=== PATIENT | female | born 1975 | race Two or more races ===

== ENCOUNTER 2019-11-12 21:16 | Emergency (ER) | payer OTHER ==
--- NOTE | 2019-11-12 21:33 | PDOC ---
Rapid Medical Evaluation Time Seen by Provider: 11/12/19 21:31 Medical Evaluation: Allergies Allergy/AdvReac Type Severity Reaction Status Date / Time No Known Allergies Allergy Verified 09/17/15 17:12 11/12/19 21:31 Pt presents to the ER for worsening R foot pain for 2 days. Exam: TTP of the medial aspect of the R heel Orders: x-rays Pt to proceed to the ER for further evaluation Discharge Disposition - Diagnosis Foot pain Qualifiers: Laterality: right Qualified Code(s): M79.671 - Pain in right foot - Referrals - Patient Instructions - Post Discharge Activity
[2019-11-12 21:34] VITALS: BP 117/72; PULSE 82; TEMP 98.3; BMI 28.3
--- NOTE | 2019-11-12 22:34 | PDOC ---
History of Present Illness - General Chief Complaint: Pain, Acute Stated Complaint: RT FOOT PAIN Time Seen by Provider: 11/12/19 21:31 - History of Present Illness Initial Comments: 11/12/19 22:33 44-year-old female without comorbidities presents for evaluation of 2 weeks of atraumatic right foot pain no systemic symptoms. History of plantar fasciitis with a surgical fix on the left foot Past History - Medical History Allergies/Adverse Reactions: Allergies Allergy/AdvReac Type Severity Reaction Status Date / Time No Known Allergies Allergy Verified 09/17/15 17:12 Home Medications: Ambulatory Orders Methocarbamol [Robaxin -] 500 mg PO TID #30 tablet 09/17/15 Methylprednisolone [Medrol Dose Donald] 4 mg PO ASDIR #21 tablet 09/17/15 Oxycodone HCl/Acetaminophen [Percocet 5-325 mg Tablet] 1 tab PO Q8H PRN #15 tablet MDD 4 09/17/15 Asthma: Yes COPD: No - Reproductive History Is Patient Now?: No - Psycho-Social/Smoking History Smoking Status: No Smoking History: Never smoked Number of Cigarettes Smoked Daily: 0 - Substance Abuse Hx (Audit-C & DAST Scrn) How often the patient has a drink containing alcohol: Never Score: In Men: 4 or > Positive; In Women: 3 or > Positive: 0 Screen Result (Pos requires Nsg. Audit-10AR): Negative In the last yr the pt used illegal drug/Rx for NonMed reason: No Score: Yes response is considered Positive: 0 Screen Result (Positive result requires Nsg. DAST-10): Negative Review of Systems - Review of Systems Constitutional: No: Fever *Physical Exam - Vital Signs Last Vital Signs Temp Pulse Resp BP Pulse Ox 98.3 F 82 19 117/72 99 11/12/19 21:31 11/12/19 21:31 11/12/19 21:31 11/12/19 21:31 11/12/19 21:31 - Physical Exam 11/12/19 22:33 Right foot skin color and temperature normal full range of motion of the ankle tenderness over the medial tubercle of the calcaneus no other areas of tenderness neurovascular intact. Medical Decision Making - Medical Decision Making 11/12/19 22:33 X-rays of the right foot show a large heel spur. Plantar fasciitis patient will take p.o. 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 She is in need of a work note That is the reason for her visit to the emergency room [facility]. Discharge - Discharge Information Problems reviewed: Yes Clinical Impression/Diagnosis: Plantar fascia syndrome Foot pain Qualifiers: Laterality: right Qualified Code(s): M79.671 - Pain in right foot Condition: Stable Disposition: HOME - Admission No - Follow up/Referral Referrals: Juan Gill MD [Primary Care Provider] - - Patient Discharge Instructions Additional Instructions: Follow-up with your orthopedic surgeon in 1 to 2 days without fail for further evaluation and treatment options. Tylenol Motrin as directed for pain. Return to the emergency room for worsening symptoms. - Post Discharge Activity Work/Back to School Note: Back to Work
== END 2019-11-12 22:50 | disposition home or self-care (01) ==
LOC: JERFT 21:16
DX: M72.2 Plantar fascial fibromatosis (principal); M79.671 Pain in right foot
CPT/HCPCS: 73630-TC-RT-FY; 99283-25

== ENCOUNTER 2020-02-26 20:28 | Emergency (ER) | payer OTHER ==
[2020-02-26 20:42] VITALS: BP 140/81; PULSE 94; TEMP 97.8; BMI 27.8
== END 2020-02-26 21:45 | disposition home or self-care (01) ==
LOC: JERFT 20:28
DX: M79.671 Pain in right foot (principal)
CPT/HCPCS: 73630-TC-RT-FY; 99283-25

== ENCOUNTER 2021-03-30 08:36 | Emergency (ER) | payer OTHER ==
[2021-03-30 08:40] VITALS: BP 136/88; PULSE 102; TEMP 98.2; BMI 27.4
[2021-03-31 10:07] LABS: SARS-CoV-2 NAA Detected (Not Detected)
== END 2021-03-30 11:26 | disposition home or self-care (01) ==
LOC: JER 08:36
DX: U07.1 COVID-19 (principal)
CPT/HCPCS: 99283-25; C9803; U0003; U0005

== ENCOUNTER 2021-04-17 08:45 | Emergency (ER) | payer OTHER ==
[2021-04-17 08:57] VITALS: BP 130/73; PULSE 87; TEMP 98.4; BMI 28.3
[2021-04-17] MEDS ORDERED: KETOROLAC TROMETHAMINE 30 MG/1 ML VIAL IM ONE (09:29)
[2021-04-17] MEDS ORDERED: KETOROLAC TROMETHAMINE 30 MG/1 ML VIAL ONE (09:37)
== END 2021-04-17 12:08 | disposition home or self-care (01) ==
LOC: JERFT 08:45
PROC: 3E0233Z Introduction of Anti-inflammatory into Muscle, Percutaneous Approach (ICD-10-PCS; principal; 2021-04-17)
DX: S46.911A Strain of unspecified muscle, fascia and tendon at shoulder and upper arm level, right arm, initial encounter (principal); S46.011A Strain of muscle(s) and tendon(s) of the rotator cuff of right shoulder, initial encounter
CPT/HCPCS: 73030-TC-RT-FY; 99284-25

== ENCOUNTER 2022-02-16 09:11 | Emergency (ER) | payer OTHER ==
[2022-02-16 09:35] VITALS: BP 154/94; RESP 16; TEMP 99; BMI 25.7
[2022-02-16] MEDS ORDERED: KETOROLAC TROMETHAMINE 30 MG/1 ML VIAL IM ONE (09:56)
[2022-02-16] MEDS ORDERED: KETOROLAC TROMETHAMINE 30 MG/1 ML VIAL ONE (10:51)
[2022-02-16 11:01] LABS: CHLORIDE 104 mmol/L (98-107); SODIUM 138 mmol/L (136-145)
[2022-02-16 11:02] LABS: ANION GAP 6 MMOL/L (8-16); CALCIUM 8.2 mg/dL (8.5-10.1); CO2 28 mmol/L (21-32)
[2022-02-16 11:03] LABS: BLOOD UREA NITROGEN 8.2 mg/dL (7-18); GLUCOSE,RANDOM 87 mg/dL (74-106)
[2022-02-16 11:06] LABS: CREATININE 0.9 mg/dL (0.55-1.3)
[2022-02-16 11:45] LABS: BASO % 0.7 % (0-2.0); EOS % 2.5 % (0-4.5); HEMATOCRIT 29.8 % (32.4-45.2); HEMOGLOBIN 8.9 GM/dL (10.7-15.3); LYMPH % 7.4 % (8-40); MCHC 29.8 g/dl (32.0-36.0); MEAN CELL VOLUME 56.6 fl (80-96); MEAN PLT VOLUME 9.2 fl (7.5-11.1); MONO % 9.5 % (3.8-10.2); NEUT % 79.9 % (42.8-82.8); PLATELET COUNT 152 10^3/uL (134-434); RBC 5.26 M/mm3 (3.60-5.2); RDW 20.9 % (11.6-15.6); WHITE BLOOD COUNT 9.3 K/mm3 (4.0-10.0)
[2022-02-16 11:47] LABS: MCH 16.9 pg (25.7-33.7)
[2022-02-16 12:17] VITALS: PULSE 94
[2022-02-16 13:46] LABS: ANISOCYTOSIS 3+; MACROCYTOSIS 0; OVALOCYTE 1+; TARGET CELLS 1+
== END 2022-02-16 13:15 | disposition home or self-care (01) ==
LOC: JER 09:11
PROC: 3E0233Z Introduction of Anti-inflammatory into Muscle, Percutaneous Approach (ICD-10-PCS; principal; 2022-02-16)
DX: J09.X2 Influenza due to identified novel influenza A virus with other respiratory manifestations (principal); R05.1 Acute cough; R07.9 Chest pain, unspecified
CPT/HCPCS: 0241U-QW; 36415; 80048; 84484; 85025; 93005; 93010; 99284-25

== ENCOUNTER 2022-08-29 02:26 | Emergency (ER) | payer OTHER ==
[2022-08-29 02:45] VITALS: BP 145/88; PULSE 88; TEMP 98; BMI 30.2
[2022-08-29] MEDS ORDERED: IBUPROFEN 600 MG TABLET (FP) PO ONE ×2 (03:25→03:27)
[2022-08-29 03:45] VITALS: RESP 18
== END 2022-08-29 03:45 | disposition home or self-care (01) ==
LOC: JER 02:26
DX: S20.219A Contusion of unspecified front wall of thorax, initial encounter (principal); Y04.8XXA Assault by other bodily force, initial encounter
CPT/HCPCS: 99283-25

== ENCOUNTER 2023-03-05 23:30 | Inpatient (IN) | payer OTHER ==
[2023-03-05] MEDS ORDERED: IBUPROFEN 100 MG/5 ML UNIT DOSE CUPS PO ONE (23:56)
[2023-03-06] MEDS ORDERED: IBUPROFEN 100 MG/5 ML UNIT DOSE CUPS ONE (01:20)
[2023-03-06] MEDS ORDERED: CLINDAMYCIN 600MG PREMIX IVPB 600 MG/50 ML BAG IVPB ONE ×2 (02:02→02:41)
[2023-03-06 02:22] LABS: EOS % 0.7 % (0-4.5); MCHC 28.2 g/dl (32.0-36.0); MEAN CELL VOLUME 51.6 fl (80-96); MEAN PLT VOLUME 9.5 fl (7.5-11.1); MONO % 10.8 % (3.8-10.2); NEUT % 54.5 % (42.8-82.8); PLATELET COUNT 43 10^3/uL (134-434); RBC 4.45 M/mm3 (3.60-5.2); RDW 21.1 % (11.6-15.6); WHITE BLOOD COUNT 10.8 K/mm3 (4.0-10.0)
[2023-03-06 02:25] LABS: MCH 14.5 pg (25.7-33.7)
[2023-03-06 02:30] LABS: HEMOGLOBIN 6.5 GM/dL (10.7-15.3)
[2023-03-06 02:56] LABS: CALCIUM 8.1 mg/dL (8.5-10.1)
[2023-03-06 02:57] LABS: ALBUMIN 3.2 g/dl (3.4-5.0); BLOOD UREA NITROGEN 16.5 mg/dL (7-18)
[2023-03-06 03:00] LABS: CREATININE 1.1 mg/dL (0.55-1.3)
[2023-03-06 03:01] LABS: TOT PROT 7.2 g/dl (6.4-8.2)
[2023-03-06 03:02] LABS: BILIRUBIN,TOTAL 0.3 mg/dL (0.2-1); ERYTHROCYTE SEDIMENTATION RATE 28 mm/hr (0-20)
[2023-03-06 04:14] LABS: MCHC 28.2 g/dl (32.0-36.0); MEAN CELL VOLUME 51.8 fl (80-96); MEAN PLT VOLUME 9.8 fl (7.5-11.1); PLATELET COUNT 55 10^3/uL (134-434); RBC 4.44 M/mm3 (3.60-5.2); RDW 21.4 % (11.6-15.6); WHITE BLOOD COUNT 10.3 K/mm3 (4.0-10.0)
[2023-03-06 04:17] LABS: MCH 14.6 pg (25.7-33.7)
[2023-03-06 04:18] LABS: HEMOGLOBIN 6.5 GM/dL (10.7-15.3)
[2023-03-06 04:54] LABS: ANISOCYTOSIS 1+; MACROCYTOSIS 0; PLATELET ESTIMATE DECREASED; TEAR DROP CELLS 1+
[2023-03-06 08:19] VITALS: BMI 27.9
[2023-03-06] MEDS ORDERED: LACTATED RINGERS SOLUTION 1000 ML INFUS.BAG IV ONE (10:15)
[2023-03-06] MEDS: FERROUS SO4 325 MG TABLET (FP) PO SCH (10:55)
[2023-03-06] MEDS ORDERED: IRON SUCROSE INJECTION 200 MG in SODIUM CHLORIDE 90 ML IVPB ONE (12:30)
[2023-03-06] MEDS: ACETAMINOPHEN 1000 MG/100 ML BAG IVPB PRN (15:51)
[2023-03-07] MEDS ORDERED: ENOXAPARIN NA (PORCINE) 40 MG/0.4 ML DISP.SYRIN SQ SCH (10:00)
[2023-03-07 10:55] LABS: HEMATOCRIT 29.8 % (32.4-45.2); HEMOGLOBIN 8.8 GM/dL (10.7-15.3); MCHC 29.3 g/dl (32.0-36.0); MEAN PLT VOLUME 9.7 fl (7.5-11.1); PLATELET COUNT 41 10^3/uL (134-434); RBC 5.23 M/mm3 (3.60-5.2); WHITE BLOOD COUNT 8.7 K/mm3 (4.0-10.0)
[2023-03-07] MEDS: FERROUS SO4 325 MG TABLET (FP) PO SCH (10:55)
[2023-03-07 10:58] LABS: MCH 16.7 pg (25.7-33.7)
[2023-03-07 11:12] LABS: POTASSIUM 3.7 mmol/L (3.5-5.1)
[2023-03-07 11:18] LABS: BLOOD UREA NITROGEN 4.5 mg/dL (7-18)
[2023-03-07 11:22] LABS: CREATININE 0.9 mg/dL (0.55-1.3); PHOSPHOROUS 2.9 mg/dL (2.5-4.9)
[2023-03-07 14:20] LABS: INR 1.19 (0.83-1.09); PROTHROMBIN TIME (PATIENT) 13.8 SEC (9.7-13.0)
[2023-03-07 14:23] LABS: ACTIVATED PTT 34.2 SECONDS (25.2-36.5)
[2023-03-07] MEDS: ACETAMINOPHEN 1000 MG/100 ML BAG IVPB PRN (17:06)
[2023-03-07] MEDS: AMPICILLIN NA/SULBACTAM NA 1.5 GM in SODIUM CHLORIDE 100 ML IVPB SCH (21:14)
[2023-03-08] MEDS: AMPICILLIN NA/SULBACTAM NA 1.5 GM in SODIUM CHLORIDE 100 ML IVPB SCH ×4 (02:23→20:48)
[2023-03-08 09:48] LABS: POTASSIUM 3.8 mmol/L (3.5-5.1)
[2023-03-08 09:52] LABS: ALBUMIN 3.1 g/dl (3.4-5.0); BLOOD UREA NITROGEN 7.5 mg/dL (7-18); CALCIUM 8.3 mg/dL (8.5-10.1); MAGNESIUM 1.9 mg/dL (1.8-2.4)
[2023-03-08 09:54] LABS: CREATININE 0.9 mg/dL (0.55-1.3)
[2023-03-08 09:55] LABS: PHOSPHOROUS 3.2 mg/dL (2.5-4.9)
[2023-03-08 09:56] LABS: BILIRUBIN,TOTAL 0.5 mg/dL (0.2-1); TOT PROT 7.2 g/dl (6.4-8.2)
[2023-03-08 10:16] LABS: BASO % 0.8 % (0-2.0); EOS % 1.2 % (0-4.5); HEMATOCRIT 31.1 % (32.4-45.2); HEMOGLOBIN 9.1 GM/dL (10.7-15.3); MCHC 29.1 g/dl (32.0-36.0); MEAN CELL VOLUME 57.4 fl (80-96); MEAN PLT VOLUME 9.7 fl (7.5-11.1); MONO % 5.3 % (3.8-10.2); NEUT % 72.7 % (42.8-82.8); PLATELET COUNT 41 10^3/uL (134-434); RBC 5.42 M/mm3 (3.60-5.2); WHITE BLOOD COUNT 9.9 K/mm3 (4.0-10.0)
[2023-03-08 10:19] LABS: MCH 16.7 pg (25.7-33.7)
[2023-03-08] MEDS: FERROUS SO4 325 MG TABLET (FP) PO SCH (10:31)
[2023-03-08] MEDS: ASCORBIC ACID 500 MG TABLET (FP) PO SCH (10:31)
[2023-03-08] MEDS: PANTOPRAZOLE 40 MG TABLET PO SCH (10:31)
[2023-03-08 19:19] LABS: HIV INTERPRETATION NEGATIVE (NEGATIVE)
[2023-03-09] MEDS: AMPICILLIN NA/SULBACTAM NA 1.5 GM in SODIUM CHLORIDE 100 ML IVPB SCH ×4 (02:31→21:06)
[2023-03-09 07:06] LABS: IGA IMMUNOGLOBULIN 714 mg/dL (87-352)
[2023-03-09] MEDS: PANTOPRAZOLE 40 MG TABLET PO SCH (10:15)
[2023-03-09] MEDS: ASCORBIC ACID 500 MG TABLET (FP) PO SCH (10:15)
[2023-03-09] MEDS: FERROUS SO4 325 MG TABLET (FP) PO SCH (10:15)
[2023-03-09 11:37] LABS: BASO % 0.8 % (0-2.0); EOS % 1.5 % (0-4.5); HEMATOCRIT 32.1 % (32.4-45.2); HEMOGLOBIN 9.4 GM/dL (10.7-15.3); LYMPH % 27.3 % (8-40); MCH 16.9 pg (25.7-33.7); MCHC 29.4 g/dl (32.0-36.0); MEAN CELL VOLUME 57.7 fl (80-96); MEAN PLT VOLUME 8.9 fl (7.5-11.1); MONO % 9.8 % (3.8-10.2); NEUT % 60.6 % (42.8-82.8); RBC 5.56 M/mm3 (3.60-5.2); RDW 26.3 % (11.6-15.6); WHITE BLOOD COUNT 9.2 K/mm3 (4.0-10.0)
[2023-03-09 12:04] LABS: ANISOCYTOSIS 3+; MACROCYTOSIS 0; OVALOCYTE 1+; TARGET CELLS 1+; TEAR DROP CELLS 1+
[2023-03-09 12:26] LABS: PLATELET COUNT 35 10^3/uL (134-434)
[2023-03-09 13:31] LABS: HIV INTERPRETATION NEGATIVE (NEGATIVE)
[2023-03-09] MEDS: ACETAMINOPHEN 1000 MG/100 ML BAG IVPB PRN (17:26)
[2023-03-10] MEDS: AMPICILLIN NA/SULBACTAM NA 1.5 GM in SODIUM CHLORIDE 100 ML IVPB SCH ×4 (02:10→21:47)
[2023-03-10 09:42] LABS: POTASSIUM 3.9 mmol/L (3.5-5.1)
[2023-03-10 09:50] LABS: ALBUMIN 3.2 g/dl (3.4-5.0); BLOOD UREA NITROGEN 14.5 mg/dL (7-18)
[2023-03-10 09:53] LABS: CREATININE 0.6 mg/dL (0.55-1.3)
[2023-03-10 09:54] LABS: BILIRUBIN,TOTAL 0.6 mg/dL (0.2-1); TOT PROT 7.5 g/dl (6.4-8.2)
[2023-03-10] MEDS: ASCORBIC ACID 500 MG TABLET (FP) PO SCH (10:11)
[2023-03-10] MEDS: FERROUS SO4 325 MG TABLET (FP) PO SCH (10:11)
[2023-03-10] MEDS: PANTOPRAZOLE 40 MG TABLET PO SCH (10:11)
[2023-03-10 10:24] LABS: EOS % 1.5 % (0-4.5); HEMATOCRIT 32.9 % (32.4-45.2); HEMOGLOBIN 9.6 GM/dL (10.7-15.3); LYMPH % 23.7 % (8-40); MEAN CELL VOLUME 58.7 fl (80-96); MEAN PLT VOLUME 9.8 fl (7.5-11.1); MONO % 7.7 % (3.8-10.2); NEUT % 66.1 % (42.8-82.8); PLATELET COUNT 37 10^3/uL (134-434); RDW 27.6 % (11.6-15.6); WHITE BLOOD COUNT 11.2 K/mm3 (4.0-10.0)
[2023-03-10] MEDS ORDERED: IRON SUCROSE INJECTION 200 MG in SODIUM CHLORIDE 100 ML IVPB ONE (14:00)
[2023-03-10 16:08] LABS: FREE KAPPA,SERUM 22.5 mg/L (3.3-19.4)
[2023-03-10] MEDS: ACETAMINOPHEN 1000 MG/100 ML BAG IVPB PRN (21:48)
[2023-03-11] MEDS: AMPICILLIN NA/SULBACTAM NA 1.5 GM in SODIUM CHLORIDE 100 ML IVPB SCH ×4 (02:35→22:06)
[2023-03-11] MEDS: FERROUS SO4 325 MG TABLET (FP) PO SCH (09:33)
[2023-03-11] MEDS: ASCORBIC ACID 500 MG TABLET (FP) PO SCH (09:33)
[2023-03-11] MEDS: PANTOPRAZOLE 40 MG TABLET PO SCH (09:33)
[2023-03-11 09:44] LABS: POTASSIUM 3.8 mmol/L (3.5-5.1)
[2023-03-11 09:48] LABS: ALBUMIN 3.1 g/dl (3.4-5.0); BLOOD UREA NITROGEN 12.6 mg/dL (7-18); CALCIUM 8.2 mg/dL (8.5-10.1)
[2023-03-11 09:51] LABS: CREATININE 0.6 mg/dL (0.55-1.3)
[2023-03-11 09:53] LABS: BILIRUBIN,TOTAL 0.5 mg/dL (0.2-1); TOT PROT 7.2 g/dl (6.4-8.2)
[2023-03-11 09:57] LABS: BASO % 0.5 % (0-2.0); EOS % 0.6 % (0-4.5); HEMATOCRIT 31.6 % (32.4-45.2); HEMOGLOBIN 9.1 GM/dL (10.7-15.3); LYMPH % 10.5 % (8-40); MCHC 28.8 g/dl (32.0-36.0); MEAN CELL VOLUME 59.4 fl (80-96); MEAN PLT VOLUME 9.5 fl (7.5-11.1); MONO % 3.6 % (3.8-10.2); NEUT % 84.8 % (42.8-82.8); RBC 5.31 M/mm3 (3.60-5.2); RDW 26.3 % (11.6-15.6)
[2023-03-11 09:58] LABS: MCH 17.1 pg (25.7-33.7)
[2023-03-11 10:07] LABS: PLATELET COUNT 32 10^3/uL (134-434)
[2023-03-11] MEDS ORDERED: PANTOPRAZOLE SODIUM 40 MG VIAL IVPUSH ONE (16:34)
[2023-03-11] MEDS ORDERED: DEXAMETHASONE SOD PHOSPHATE 10 MG/1 ML VIAL IVPB ONE (17:00)
[2023-03-11] MEDS ORDERED: IRON SUCROSE INJECTION 200 MG in SODIUM CHLORIDE 90 ML IVPB ONE (17:00)
[2023-03-11] MEDS: INSULIN SLIDING SCALE (NOVOLOG) 1 VIAL SQ SCH (17:25)
[2023-03-12] MEDS: AMPICILLIN NA/SULBACTAM NA 1.5 GM in SODIUM CHLORIDE 100 ML IVPB SCH ×4 (04:55→21:29)
[2023-03-12] MEDS: INSULIN SLIDING SCALE (NOVOLOG) 1 VIAL SQ SCH ×3 (06:31→16:45)
[2023-03-12] MEDS: ACETAMINOPHEN 1000 MG/100 ML BAG IVPB PRN (08:17)
[2023-03-12 09:15] LABS: BASO % 0.3 % (0-2.0); HEMATOCRIT 33.3 % (32.4-45.2); HEMOGLOBIN 9.7 GM/dL (10.7-15.3); LYMPH % 12.3 % (8-40); MEAN CELL VOLUME 61.4 fl (80-96); MONO % 0.6 % (3.8-10.2); NEUT % 86.8 % (42.8-82.8); RBC 5.42 M/mm3 (3.60-5.2); WHITE BLOOD COUNT 12.1 K/mm3 (4.0-10.0)
[2023-03-12 09:20] LABS: MCH 17.8 pg (25.7-33.7)
[2023-03-12] MEDS: PANTOPRAZOLE 40 MG TABLET PO SCH (09:38)
[2023-03-12] MEDS: ASCORBIC ACID 500 MG TABLET (FP) PO SCH (09:38)
[2023-03-12] MEDS: FERROUS SO4 325 MG TABLET (FP) PO SCH (09:38)
[2023-03-12 09:43] LABS: POTASSIUM 5.8 mmol/L (3.5-5.1)
[2023-03-12 09:52] LABS: ALBUMIN 3.4 g/dl (3.4-5.0); BLOOD UREA NITROGEN 9.5 mg/dL (7-18)
[2023-03-12 09:55] LABS: CALCIUM 8.6 mg/dL (8.5-10.1); CREATININE 0.6 mg/dL (0.55-1.3)
[2023-03-12 09:56] LABS: BILIRUBIN,TOTAL 0.6 mg/dL (0.2-1)
[2023-03-12 09:57] LABS: PLATELET COUNT 46 10^3/uL (134-434)
[2023-03-12 09:58] LABS: MEAN PLT VOLUME 10.3 fl (7.5-11.1)
[2023-03-12 09:59] LABS: TOT PROT 8.4 g/dl (6.4-8.2)
[2023-03-12] MEDS ORDERED: DEXAMETHASONE SOD PHOSPHATE 20 MG/5 ML VIAL IVPB SCH (10:00)
[2023-03-12] MEDS: DEXAMETHASONE SOD PHOSPHATE 10 MG/1 ML VIAL IVPB SCH (10:42)
[2023-03-12 10:44] LABS: PLATELET ESTIMATE SIGNIFICANT INCREASE
[2023-03-12 22:41] LABS: HEMATOCRIT 34.4 % (32.4-45.2); HEMOGLOBIN 9.9 GM/dL (10.7-15.3); MCHC 28.7 g/dl (32.0-36.0); MEAN CELL VOLUME 61.2 fl (80-96); MEAN PLT VOLUME 9.5 fl (7.5-11.1); PLATELET COUNT 60 10^3/uL (134-434); RBC 5.62 M/mm3 (3.60-5.2); RDW 34.9 % (11.6-15.6); WHITE BLOOD COUNT 25.9 K/mm3 (4.0-10.0)
[2023-03-12 22:51] LABS: MCH 17.6 pg (25.7-33.7)
[2023-03-12 23:39] LABS: ANISOCYTOSIS 3+; MACROCYTOSIS 0; TEAR DROP CELLS 1+
[2023-03-13] MEDS: AMPICILLIN NA/SULBACTAM NA 1.5 GM in SODIUM CHLORIDE 100 ML IVPB SCH ×4 (02:15→21:27)
[2023-03-13 03:15] VITALS: RESP 16
[2023-03-13] MEDS: PANTOPRAZOLE 40 MG TABLET PO SCH (09:07)
[2023-03-13] MEDS: DEXAMETHASONE SOD PHOSPHATE 10 MG/1 ML VIAL IVPB SCH (09:07)
[2023-03-13] MEDS: ASCORBIC ACID 500 MG TABLET (FP) PO SCH (09:08)
[2023-03-13] MEDS: FERROUS SO4 325 MG TABLET (FP) PO SCH (09:08)
[2023-03-13 09:49] LABS: HEMOGLOBIN 9.2 GM/dL (10.7-15.3); MCHC 28.9 g/dl (32.0-36.0); MEAN CELL VOLUME 61.9 fl (80-96); MEAN PLT VOLUME 9.7 fl (7.5-11.1); PLATELET COUNT 97 10^3/uL (134-434); RBC 5.16 M/mm3 (3.60-5.2); WHITE BLOOD COUNT 28.8 K/mm3 (4.0-10.0)
[2023-03-13 09:51] LABS: MCH 17.9 pg (25.7-33.7)
[2023-03-13 11:07] LABS: ANISOCYTOSIS 3+; MACROCYTOSIS 0
[2023-03-13 12:04] LABS: ALBUMIN 3.3 g/dl (3.4-5.0); BILIRUBIN,TOTAL 0.7 mg/dL (0.2-1); BLOOD UREA NITROGEN 13.4 mg/dL (7-18); CALCIUM 8.6 mg/dL (8.5-10.1); CREATININE 0.6 mg/dL (0.55-1.3); POTASSIUM 3.7 mmol/L (3.5-5.1); TOT PROT 7.4 g/dl (6.4-8.2)
[2023-03-13] MEDS ORDERED: IRON SUCROSE INJECTION 100 MG in SODIUM CHLORIDE 95 ML IVPB ONE (13:52)
[2023-03-14] MEDS: AMPICILLIN NA/SULBACTAM NA 1.5 GM in SODIUM CHLORIDE 100 ML IVPB SCH ×3 (02:12→16:02)
[2023-03-14] MEDS: ACETAMINOPHEN 1000 MG/100 ML BAG IVPB PRN (05:25)
[2023-03-14 08:48] LABS: HEMATOCRIT 33.4 % (32.4-45.2); HEMOGLOBIN 9.6 GM/dL (10.7-15.3); MCHC 28.6 g/dl (32.0-36.0); MEAN CELL VOLUME 62.7 fl (80-96); MEAN PLT VOLUME 9.8 fl (7.5-11.1); RBC 5.32 M/mm3 (3.60-5.2); RDW 37.9 % (11.6-15.6); WHITE BLOOD COUNT 22.9 K/mm3 (4.0-10.0)
[2023-03-14 08:56] LABS: PLATELET COUNT 166 10^3/uL (134-434)
[2023-03-14 09:04] LABS: POTASSIUM 3.8 mmol/L (3.5-5.1)
[2023-03-14 09:06] LABS: BLOOD UREA NITROGEN 11.5 mg/dL (7-18); CALCIUM 8.4 mg/dL (8.5-10.1)
[2023-03-14 09:10] LABS: CREATININE 0.6 mg/dL (0.55-1.3)
[2023-03-14] MEDS: PANTOPRAZOLE 40 MG TABLET PO SCH (09:23)
[2023-03-14] MEDS: ASCORBIC ACID 500 MG TABLET (FP) PO SCH (09:23)
[2023-03-14] MEDS: DEXAMETHASONE SOD PHOSPHATE 10 MG/1 ML VIAL IVPB SCH (09:25)
[2023-03-14 10:56] LABS: ANISOCYTOSIS 2+; MACROCYTOSIS 0; OVALOCYTE 2+; TEAR DROP CELLS 2+
[2023-03-14 15:09] VITALS: BP 138/58; PULSE 60; TEMP 98
== END 2023-03-14 16:03 | disposition home or self-care (01) | DRG 424 ==
LOC: JER 23:30 → JERBED 03-06 05:10 → J5S 03-06 07:02
PROVIDERS: ADMIT Internal Medicine
PROC: 30233N1 Transfusion of Nonautologous Red Blood Cells into Peripheral Vein, Percutaneous Approach (ICD-10-PCS; 2023-03-06)
PROC: 30233R1 Transfusion of Nonautologous Platelets into Peripheral Vein, Percutaneous Approach (ICD-10-PCS; 2023-03-07)
PROC: 0DJ08ZZ Inspection of Upper Intestinal Tract, Via Natural or Artificial Opening Endoscopic (ICD-10-PCS; principal; 2023-03-07 11:00)
DX: Q89.2 Congenital malformations of other endocrine glands (principal); D61.818 Other pancytopenia; D69.3 Immune thrombocytopenic purpura; D69.6 Thrombocytopenia, unspecified; R13.10 Dysphagia, unspecified; D50.9 Iron deficiency anemia, unspecified; J45.909 Unspecified asthma, uncomplicated; K21.9 Gastro-esophageal reflux disease without esophagitis
CPT/HCPCS: 36415; 36430; 36511; 70490-TC; 70491-TC; 76700-TC; 80048; 80053; 82272; 82607; 82728; 82746; 82784; 82930; 82962; 83010; 83540; 83550; 83615; 83655; 83735; 83883; 84100; 84155; 84165; 84439; 84443; 85025; 85027; 85045; 85610; 85651; 85730; 86140; 86790; 86922; 87040; 87338; 87389; 87651; 99285-25; J1100; J1756; P9034; P9037; P9038; P9058; Q9967

== ENCOUNTER 2023-08-25 01:06 | Emergency (ER) | payer OTHER ==
[2023-08-25 01:16] VITALS: BP 151/97; PULSE 89; RESP 18; TEMP 99.3; BMI 29.2
[2023-08-25] MEDS ORDERED: ACETAMINOPHEN 500 MG TABLET (FP) ONE (01:42)
[2023-08-25] MEDS: ACETAMINOPHEN 325 MG TABLET (FP) PO ONE (01:44)
[2023-08-25 02:11] LABS: THROAT:GRP A STREP NOT DETECTED (NOTDETECTED)
== END 2023-08-25 02:22 | disposition home or self-care (01) ==
LOC: JER 01:06 → JERFT 01:06
DX: J02.9 Acute pharyngitis, unspecified (principal); R05.9 Cough, unspecified; J34.89 Other specified disorders of nose and nasal sinuses; J06.9 Acute upper respiratory infection, unspecified; Z20.822 Contact with and (suspected) exposure to COVID-19
CPT/HCPCS: 0241U-QW; 87651; 99283-25

== ENCOUNTER 2023-10-15 18:07 | Emergency (ER) | payer OTHER ==
[2023-10-15 18:18] VITALS: BP 134/78; PULSE 95; RESP 18; TEMP 97.9; BMI 29.2
[2023-10-15] MEDS ORDERED: diphenhydrAMINE HCL 25 MG CAPSULE (FP) PO ONE (18:54)
[2023-10-15] MEDS: diphenhydrAMINE HCL 25 MG CAPSULE (FP) PO ONE (18:57)
== END 2023-10-15 18:58 | disposition home or self-care (01) ==
LOC: JERFT 18:07 → JER 18:07 → JERFT 18:58
DX: L24.3 Irritant contact dermatitis due to cosmetics (principal); R21 Rash and other nonspecific skin eruption
CPT/HCPCS: 99283-25

== ENCOUNTER 2024-01-14 10:38 | Emergency (ER) | payer OTHER ==
[2024-01-14 10:51] VITALS: BP 138/76; PULSE 104; RESP 18; TEMP 98.3; BMI 32.3
[2024-01-14] MEDS: ACETAMINOPHEN 500 MG TABLET (FP) PO ONE (11:11)
[2024-01-14] MEDS ORDERED: ACETAMINOPHEN 500 MG TABLET (FP) ONE (11:12)
[2024-01-14 12:06] LABS: THROAT:GRP A STREP NOT DETECTED (NOTDETECTED)
== END 2024-01-14 11:36 | disposition home or self-care (01) ==
LOC: JERFT 10:38
DX: J22 Unspecified acute lower respiratory infection (principal); R05.9 Cough, unspecified; R09.81 Nasal congestion; M79.10 Myalgia, unspecified site; R68.83 Chills (without fever); R07.89 Other chest pain; Z20.822 Contact with and (suspected) exposure to COVID-19
CPT/HCPCS: 0241U-QW; 87651; 99283-25

== ENCOUNTER 2024-06-19 08:39 | Day surgery (SDC) | payer OTHER ==
[2024-06-19] MEDS: IRON SUCROSE INJECTION 200 MG in SODIUM CHLORIDE 100 ML IVPB ONE (09:54)
[2024-06-19 15:58] VITALS: RESP 18; TEMP 97.7
[2024-06-19 16:20] VITALS: BP 129/78; PULSE 75
== END 2024-06-19 11:00 | disposition home or self-care (01) ==
LOC: JONCNONCHE 08:39 → J7W 09:34 → JONCNONCHE 11:00
PROVIDERS: ATTEND Internal Medicine Hematology & Oncology
PROC: 3E033GC Introduction of Other Therapeutic Substance into Peripheral Vein, Percutaneous Approach (ICD-10-PCS; principal; 2024-06-19)
DX: D50.9 Iron deficiency anemia, unspecified (principal)
CPT/HCPCS: 96365; J1756

== ENCOUNTER 2024-06-26 13:10 | Day surgery (SDC) | payer OTHER ==
[2024-06-26] MEDS: IRON SUCROSE INJECTION 200 MG in SODIUM CHLORIDE 100 ML IVPB ONE (13:40)
[2024-06-26 18:27] VITALS: RESP 20; TEMP 97.8
[2024-06-26 18:29] VITALS: BP 134/76; PULSE 76
== END 2024-06-26 14:50 | disposition home or self-care (01) ==
LOC: JONCNONCHE 13:10
PROVIDERS: ATTEND Internal Medicine Hematology & Oncology
PROC: 3E033GC Introduction of Other Therapeutic Substance into Peripheral Vein, Percutaneous Approach (ICD-10-PCS; principal; 2024-06-26)
DX: D50.9 Iron deficiency anemia, unspecified (principal)
CPT/HCPCS: 96365; J1756

== ENCOUNTER 2024-07-03 09:30 | Day surgery (SDC) | payer OTHER ==
[2024-07-03] MEDS: IRON SUCROSE INJECTION 200 MG in SODIUM CHLORIDE 100 ML IVPB ONE (09:28)
[2024-07-03 15:24] VITALS: BP 135/75; PULSE 82; RESP 20; TEMP 98.1
== END 2024-07-03 11:10 | disposition home or self-care (01) ==
LOC: JONCNONCHE 09:30 → J7W 09:31 → JONCNONCHE 11:10
PROVIDERS: ATTEND Internal Medicine Hematology & Oncology
PROC: 3E033GC Introduction of Other Therapeutic Substance into Peripheral Vein, Percutaneous Approach (ICD-10-PCS; principal; 2024-07-03)
DX: D50.9 Iron deficiency anemia, unspecified (principal)
CPT/HCPCS: 96365; J1756

== ENCOUNTER 2024-07-11 08:48 | Day surgery (SDC) | payer OTHER ==
[~2024-07-11 08:48] MED LIST: IRON SUCROSE INJECTION 200 MG in SODIUM CHLORIDE 100 ML IVPB ONE
[2024-07-11] MEDS: IRON SUCROSE INJECTION 200 MG in SODIUM CHLORIDE 100 ML IVPB ONE (09:08)
[2024-07-11 16:10] VITALS: RESP 18; TEMP 98.2
[2024-07-11 16:15] VITALS: BP 118/76; PULSE 80
== END 2024-07-11 10:10 | disposition home or self-care (01) ==
LOC: JONCNONCHE 08:48
PROVIDERS: ATTEND Internal Medicine Hematology & Oncology
PROC: 3E033GC Introduction of Other Therapeutic Substance into Peripheral Vein, Percutaneous Approach (ICD-10-PCS; principal; 2024-07-11)
DX: D50.9 Iron deficiency anemia, unspecified (principal)
CPT/HCPCS: 96365; J1756

== ENCOUNTER 2024-12-04 22:31 | Emergency (ER) | payer OTHER ==
[2024-12-04 22:37] VITALS: BMI 31.6
[2024-12-04] MEDS ORDERED: ACETAMINOPHEN 500 MG TABLET (FP) ONE (23:27)
[2024-12-04] MEDS: KETOROLAC TROMETHAMINE 30 MG/1 ML VIAL IM ONE (23:31)
[2024-12-04] MEDS: LIDOCAINE 5% TOPICAL PATCH TP ONE (23:31)
[2024-12-04] MEDS: ACETAMINOPHEN 500 MG TABLET (FP) PO ONE (23:31)
[2024-12-05 00:40] VITALS: BP 130/91; PULSE 82; RESP 18; TEMP 98.2
[2024-12-05] MEDS ORDERED: LIDOCAINE PATCH REMOVAL MC ONE (13:00)
== END 2024-12-05 00:57 | disposition home or self-care (01) ==
LOC: JER 22:31
PROC: 3E0233Z Introduction of Anti-inflammatory into Muscle, Percutaneous Approach (ICD-10-PCS; principal; 2024-12-04)
DX: M62.830 Muscle spasm of back (principal); M54.50 Low back pain, unspecified; R29.898 Other symptoms and signs involving the musculoskeletal system
CPT/HCPCS: 73502-TC-RT-FY; 99284-25

== ENCOUNTER 2025-01-25 09:32 | Day surgery (SDC) | payer OTHER ==
[2025-01-25 09:40] VITALS: RESP 18; TEMP 98.5
[2025-01-25] MEDS: IRON SUCROSE INJECTION 200 MG in SODIUM CHLORIDE 100 ML IVPB ONE (10:24)
[2025-01-25 11:22] VITALS: BP 136/76; PULSE 66
== END 2025-01-25 11:30 | disposition home or self-care (01) ==
LOC: JONCNONCHE 09:32
PROVIDERS: ATTEND Internal Medicine Hematology & Oncology
PROC: 3E033GC Introduction of Other Therapeutic Substance into Peripheral Vein, Percutaneous Approach (ICD-10-PCS; principal; 2025-01-25)
DX: D50.9 Iron deficiency anemia, unspecified (principal)
CPT/HCPCS: J1756